=== PATIENT | male | born 1965 | race African-American/Black ===

== ENCOUNTER 2024-12-17 16:52 | Observation (INO) ==
[2024-12-17 17:01] VITALS: BMI 33.0
[2024-12-17 17:46] LABS: MEAN PLATELET VOLUME 7.2 fL (7.4-11.0); RED CELL DISTRIBUTION WIDTH 13.6 % (11.6-16.5)
[2024-12-17 17:57] LABS: COR NA(FOR HYPERGLY) 143 mmol/L (136-145); CREATININE 1.16 mg/dL (0.70-1.30); eGFR NON BLACK RACES > 60 (>60)
--- NOTE | 2024-12-17 18:33 | DR.EXTPAIN ---
HPI Time seen Time Seen by Provider: 12/17/24 18:33 Complaint/Symptoms Chief Complaint:: Patient states november 27 he stumped his right big toe and it started turning black he seen dr gonzalez and was told to come to be admitted to have it amputated. COVID-19 Coronavirus risk:travel/contact w/high risk person: No Has patient experienced Coronavirus symptoms: No Source History Provided: Patient Mode of arrival Mode of Arrival: Ambulatory Timing Onset of Chief Complaint: 11/27/24 PMH PMH Past Medical History: Yes Past Medical History: Diabetes Past Surgical History: Yes Surgical History: Ortho Surgery Past Surgical History Comment: partial amputation L bird finger Family History History of Family Medical Conditions: Yes Family Medical History: Diabetes Mellitus Social History Does patient currently use any type of tobacco product: No Have you used tobacco products in the last 12 months: No Type of Tobacco Use: None Does any household member use tobacco: No Alcohol Use: None Do you use any recreational Drugs:: No Lives With: Alone Lives Where: Home Travel Risk Coronavirus risk:travel/contact w/high risk person: No Has patient experienced Coronavirus symptoms: No Infectious screening In the last 2 months have you had wt loss of >10#?: NO Have you had fever, night sweats or hemotysis?: No Have you traveled outside the country in the last 6 months?: No Isolation: Standard PE Vital Signs Vitals: Vital Signs Temperature 98.4 F Pulse Rate 95 Respiratory Rate 16 Blood Pressure 120/71 O2 Sat by Pulse Oximetry 95 ROR Labs Reviewed 12/20/24 05:21 12/20/24 05:21 Laboratory: WBC 7.7 X10^3/uL (3.6-10.0) 12/17/24 17:39 RBC 5.16 X10^6/uL (4.7-6.0) 12/17/24 17:39 Hgb 14.9 g/dL (13.5-18.0) 12/17/24 17:39 Hct 43.8 % (42.0-54.0) 12/17/24 17:39 MCV 85.0 fL (80.0-100.0) 12/17/24 17:39 MCH 28.8 pg (27.0-34.0) 12/17/24 17:39 MCHC 33.9 g/dL (33.0-35.0) 12/17/24 17:39 RDW 13.6 % (11.6-16.5) 12/17/24 17:39 Plt Count 330 X10^3/uL (150.0-450.0) 12/17/24 17:39 MPV 7.2 fL (7.4-11.0) L 12/17/24 17:39 Neut % (Auto) 58.1 % (42.0-75.0) 12/17/24 17:39 Lymph % (Auto) 28.4 % (21.0-51.0) 12/17/24 17:39 [place] % (Auto) 8.2 % (0.0-13.0) 12/17/24 17:39 Eos % (Auto) 4.5 % (0.9-2.9) H 12/17/24 17:39 Baso % (Auto) 0.8 % (0.2-1.0) 12/17/24 17:39 Neut # (Auto) 4.5 x10^3/uL (2.2-4.8) 12/17/24 17:39 Lymph # (Auto) 2.2 X10^3/uL (1.3-2.9) 12/17/24 17:39 [place] # (Auto) 0.6 x10^3/uL (0.3-0.8) 12/17/24 17:39 Eos # (Auto) 0.3 x10^3/uL (0.0-0.2) H 12/17/24 17:39 Baso # (Auto) 0.1 X10^3/uL (0.0-0.1) 12/17/24 17:39 Absolute Nucleated RBC 0.0 /100WBC 12/17/24 17:39 ESR 17 MM/HOUR (0-15) H 12/17/24 17:39 Sodium 140 mmol/L (136-145) 12/17/24 17:39 Corrected Sodium 143 mmol/L (136-145) 12/17/24 17:39 Potassium 3.7 mmol/L (3.5-5.1) 12/17/24 17:39 Chloride 104 mmol/L (98-107) 12/17/24 17:39 Carbon Dioxide 27.7 mmol/L (21-32) 12/17/24 17:39 BUN 9 mg/dL (7-18) 12/17/24 17:39 Creatinine 1.16 mg/dL (0.70-1.30) 12/17/24 17:39 Est GFR (MDRD) Af Amer > 60 (>60) 12/17/24 17:39 Est GFR (MDRD) Non-Af > 60 (>60) 12/17/24 17:39 Glucose 209 mg/dL (65-99) H 12/17/24 17:39 Calcium 9.0 mg/dL (8.5-10.1) 12/17/24 17:39 Corrected Calcium TNP 12/17/24 17:39 Total Bilirubin 0.20 mg/dL (0.2-1.0) 12/17/24 17:39 AST 10 Units/L (15-37) L 12/17/24 17:39 ALT 27 Units/L (12-78) 12/17/24 17:39 Alkaline Phosphatase 86 Units/L (46-116) 12/17/24 17:39 C-Reactive Protein 7.70 mg/L (0-3.0) H 12/17/24 17:39 Total Protein 9.1 g/dL (6.4-8.2) H 12/17/24 17:39 Albumin 4.3 g/dL (3.4-5.0) 12/17/24 17:39 Globulin 4.8 g/dL (2.5-4.5) H 12/17/24 17:39 Albumin/Globulin Ratio 0.9 Ratio (1.1-2.1) L 12/17/24 17:39 Opioid Opioid Risk Tool Age (Sanjeev box if 16-45): No History of Preadolescent Sexual Abuse: No Total: 0 Total Score Risk Category: Low Risk Copyright: Anders RAZA predicting aberrant behaviors Discharge Plan Diagnosis Discharge Problem: Gangrene of right foot, Foot pain Discharge Plan Patient Disposition: 09 ADMITTED INPATIENT Condition: Stable Orders to Discharge Patient Discharge Orders: Discharge (Routine); Ordered 12/20/24 Ordered By: SHYANN VALLE
[2024-12-17] MEDS ORDERED: XYLOCAINE 2 % (PLAIN) ONE (23:00)
[2024-12-17] MEDS ORDERED: KETAMINE HCL ONE ×2 (23:00)
[2024-12-17] MEDS ORDERED: PRECEDEX INJ VIAL ONE (23:00)
[2024-12-17] MEDS ORDERED: ZOFRAN INJ 4 MG VIAL IVP PRN (23:09)
[2024-12-17] MEDS: VANCOMYCIN IV *PREMIX 1 G/200 ML BAG 1 G/200 ML PIGGYBACK IV ONE (23:10)
[2024-12-17] MEDS: VANCOMYCIN IV *PREMIX 1 G/200 ML BAG 1 G/200 ML PIGGYBACK IV SCH (23:16)
--- NOTE | 2024-12-18 00:14 | CT ---
EXAM: CT ANGIOGRAM ABDOMEN, PELVIS, AND BILATERAL LOWER EXTREMITIES WITH AND WITHOUT CONTRAST HISTORY: Patient states november 27 he stumped his right big toe and it started turning black he seen dr gonzalez and was told to come to be admitted to have it amputated.; . COMPARISON: None. TECHNIQUE: Axial CT images were obtained through the abdomen and pelvis and bilateral lower extremities both before after the intravenous administration of contrast. Coronal and sagittal reformatted images were included. MIP images were also performed. Informed written consent was obtained from the patient prior to contrast administration. All CT scans at this facility use dose modulation, iterative reconstruction, and/or weight based dosing when appropriate to reduce radiation dose to as low as reasonably achievable. FINDINGS: VASCULAR FINDINGS: ABDOMEN/PELVIS: Aorta is normal in course and caliber without evidence of aneurysm, dissection, or other acute pathology. Moderate atherosclerotic disease is present. Celiac, superior mesenteric, and renal arteries are all widely patent. Bilateral iliac arteries are patent and normal in caliber. LEFT LOWER EXTREMITY: Femoral artery, superficial femoral artery, and popliteal artery are all widely patent with no flow limiting stenosis. Severe disease of the infrapopliteal vessels with faintly visible one-vessel runoff through the right ankle via the posterior tibial artery.. RIGHT LOWER EXTREMITY: Femoral artery, superficial femoral artery, and popliteal artery are all widely patent with no flow limiting stenosis. Severe disease of the infrapopliteal vessels with faintly visible one-vessel runoff through the right ankle via the anterior tibial artery.. NON VASCULAR FINDINGS: LOWER THORAX: Normal ABDOMEN: LIVER: Normal GALLBLADDER: Normal SPLEEN: Normal PANCREAS: Normal KIDNEYS: Normal ADRENAL GLANDS: Normal GI TRACT: Normal course and caliber LYMPH NODES: No enlarged nodes PERITONEUM / RETROPERITONEUM: No free gas PELVIS: BLADDER: Normal GENITALS: Normal BONES: Normal LOWER EXTREMITIES: SOFT TISSUE: Normal. BONES: Normal IMPRESSION: 1. CTA of the abdominal aorta demonstrates moderate calcified atherosclerotic disease without aneurysm or dissection. No significant stenosis or occlusion of the mesenteric or renal arteries. 2. CTA of the pelvis demonstrates normal appearance of the pelvic arterial vasculature 3. CTA of the bilateral lower extremities demonstrates good flow through both SFA and popliteal arteries. There is severe disease of both infrapopliteal vessels with scattered calcified plaques with bilateral one-vessel runoff to both ankles via the posterior tibial artery on the right and anterior tibial artery on the left. THIS IS AN ELECTRONICALLY VERIFIED FINAL REPORT 12/18/2024 12:11 AM - Electronically signed by Everett Meeks MD
[2024-12-18] MEDS: NS 1,000 ML IV 1,000 ML IV SCH (00:34)
[2024-12-18] MEDS: VANCOMYCIN IV *PREMIX 1 G/200 ML BAG 1 G/200 ML PIGGYBACK IV ONE (03:03)
[2024-12-18] MEDS: OMNIPAQUE 350 mg/mL 50 mL BTL 50 ML ONE (03:03)
[2024-12-18] MEDS: OMNIPAQUE 350 mg/mL 100 mL BTL 100 ML ONE (03:03)
[2024-12-18] MEDS: NS 500 ML IV 500 ML IV ONE ×2 (03:03→14:39)
[2024-12-18] MEDS: NovoLIN R (or HumuLIN R) SUBCUT PRN (05:47)
[2024-12-18 05:51] LABS: MEAN PLATELET VOLUME 7.6 fL (7.4-11.0); RED CELL DISTRIBUTION WIDTH 13.5 % (11.6-16.5)
[2024-12-18 06:03] LABS: COR NA(FOR HYPERGLY) 145 mmol/L (136-145); CREATININE 1.04 mg/dL (0.70-1.30); eGFR NON BLACK RACES > 60 (>60)
[2024-12-18] MEDS: MAG-OX TAB PO SCH (07:50)
[2024-12-18] MEDS: VANCOMYCIN IV *PREMIX 1 G/200 ML BAG 1 G/200 ML PIGGYBACK IV SCH (07:50)
[2024-12-18] MEDS ORDERED: CONSULT PHARMACY - POTASSIUM & MAGNESIUM XX SCH (08:00)
--- NOTE | 2024-12-18 09:10 | EKG ---
Test Reason : preop Blood Pressure : */* mmHG Vent. Rate : 80 BPM Atrial Rate : 80 BPM P-R Int : 216 ms QRS Dur : 82 ms QT Int : 350 ms P-R-T Axes : 67 12 47 degrees QTc Int : 403 ms Sinus rhythm with 1st degree AV block Otherwise normal ECG No previous ECGs available Confirmed by Donovan Ochoa MD ([id number]) on 12/18/2024 2:35:31 PM Referred By: Confirmed By: Donovan Ochoa MD
[2024-12-18] MEDS: REGLAN INJ 10 MG VIAL IVP PRN (10:11)
[2024-12-18] MEDS: PEPCID 20 MG VIAL IVP PRN (10:11)
--- NOTE | 2024-12-18 10:24 | DR.CONSULT ---
CONSULT Consultation for Day of: Date: 12/18/24 Chief Complaint Chief Complaint: 59-year-old male with significant history of diabetes who has gangrenous changes of the right great toe. Presumably after some trauma. He was admitted and placed on antibiotics. CT angiogram shows significant disease of the intra popliteal arteries bilaterally with one-vessel runoff bilaterally being the posterior tibial on the left and anterior tibial on the right. Patient will require revascularization prior to amputation planned of the right great toe by Dr. Velásquez of podiatry. Patient is not a smoker and denies any significant history of coronary vascular disease or chest pain. Allergies Allergies Allergy/AdvReac Type Severity Reaction Status Date / Time No Known Allergies Allergy Verified 12/17/24 17:01 History of Present Illness History of Present Illness: see above Past Medical History Past Medical History: Diabetes Past Surgical History Surgical History: Other Family History Family Medical History: Diabetes Mellitus Social History Does patient currently use any type of tobacco product: No Have you used tobacco products in the last 12 months: No Type of Tobacco Use: None Does any household member use tobacco: No Alcohol Use: None Drug Use: Marijuana Medications Home Medications: No Known Allergies Allergy (Verified 12/17/24 17:01) CONTINUE taking the following medications metformin 500 mg tablet 500 mg PO DAILY 12/17/24 [History] Review of Systems Constitutional: See HPI Eyes: No Symptoms Reported ENT: No Symptoms Reported Respiratory: No Symptoms Reported Cardiovascular: No Symptoms Reported and Other (Palpable femoral pulses bilaterally. Absent pulses both ankles. Gangrenous changes of the distal aspect of the right great toe. No obvious significant cellulitis) Gastrointestinal: No Symptoms Reported Genitourinary: No Symptoms Reported Musculoskeletal: No Symptoms Reported Skin: No Symptoms Reported Neurological: No Symptoms Reported Physical Exam Vital Signs: Vital Signs Temperature 98.4 F Temperature 97.9 F Pulse Rate [Left Radial] 72 Pulse Rate [Left Radial] 78 Respiratory Rate 20 Respiratory Rate 20 Blood Pressure [Right Arm] 167/84 Blood Pressure [Right Arm] 147/84 O2 Sat by Pulse Oximetry 100 O2 Sat by Pulse Oximetry 100 Oriented: Normal, Time, Person and Place Eyes: Normal Ear: Normal Nose: Normal Throat: Normal Respiratory: Clear Throughout Cardiovascular: Normal : Normal Auscultation: Bowel Sounds: Normal Palpation: Normal Tenderness: Normal Skin: Other (Gangrenous changes right great toe with no obvious cellulitis) Musculoskeletal: Normal (With the exception of involvement of the right great toe, see above) Psychiatric: Normal Mood Description: Calm Affect: Normal Speech Pattern: Clear and Appropriate Plan (1) 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 Risk and benefits discussed with the patient he agrees to proceed. (2) Type 2 diabetes mellitus without complications: Status: Acute (3) Gangrene of right foot: Status: Acute
--- NOTE | 2024-12-18 11:07 | DR.CONSULT ---
CONSULT Consultation for Day of: Date: 12/18/24 Chief Complaint Chief Complaint: Open wound to great right toe, concern for osteomyelitis, worsening symptoms was sent in by sewing machine adjuster Dr. Velásquez for surgical intervention Allergies Allergies Allergy/AdvReac Type Severity Reaction Status Date / Time No Known Allergies Allergy Verified 12/17/24 17:01 History of Present Illness History of Present Illness: Patient is a 59 year old male with PMHx of diabetes. Patient admits to injuring his right big toe by stumping it. He noticed discoloration and a wound begin to the toe that became concerning. Patient had seen Dr. Velásquez in office and there was concern for osteomyelitis to the distal aspect of the hallux. Patient was told to go to the hospital for admission, vascular consult and for podiatric surgical intervention. Patient denies tobacco use but does admit to marijuana use. Past Medical History Past Medical History: Diabetes Past Surgical History Surgical History: Other Family History Family Medical History: Diabetes Mellitus Social History Does patient currently use any type of tobacco product: No Have you used tobacco products in the last 12 months: No Type of Tobacco Use: None Does any household member use tobacco: No Alcohol Use: None Drug Use: Marijuana Medications Home Medications: No Known Allergies Allergy (Verified 12/17/24 17:01) CONTINUE taking the following medications metformin 500 mg tablet 500 mg PO DAILY 12/17/24 [History] Physical Exam Vital Signs: Vital Signs Temperature 98.4 F Temperature 97.9 F Pulse Rate [Left Radial] 72 Pulse Rate [Left Radial] 78 Respiratory Rate 20 Respiratory Rate 20 Blood Pressure [Right Arm] 167/84 Blood Pressure [Right Arm] 147/84 O2 Sat by Pulse Oximetry 100 O2 Sat by Pulse Oximetry 100 Plan (1) Atherosclerosis of [place] arteries of extremities with rest pain, right leg: Status: Acute (2) Type 2 diabetes mellitus without complications: Status: Acute (3) Gangrene of right foot: Status: Acute Narrative Support Text: Pt to undergo care and intervention by Dr. Cook due to one vessel runoff seen on CTA- please keep NPO for tuesday procedure Pt will be boarded for surgical intervention for Tuesday with podiatry where he will undergo right partial hallux amputation, deep tendon transfer and double advancement flap to the right foot. Please keep patient NPO at midnight for tomorrows procedure
[2024-12-18] MEDS: NS IV PRN (13:45)
[2024-12-18] MEDS: NS 1,000 ML IV 1,000 ML ONE (13:47)
[2024-12-18] MEDS: ANCEF VIAL 1 GRAM ONE (13:50)
[2024-12-18] MEDS: ZOFRAN INJ 4 MG VIAL IVP PRN (13:50)
[2024-12-18] MEDS: NS 100 ML IV 100 ML ONE (13:50)
[2024-12-18] MEDS: ANCEF VIAL 1 GRAM IV PRN (13:55)
[2024-12-18] MEDS: PEPCID 20 MG VIAL ONE (14:00)
[2024-12-18] MEDS ORDERED: DANTRIUM PRN (14:00)
[2024-12-18] MEDS: DIPRIVAN VIAL 20 ML ONE ×2 (14:00→16:34)
[2024-12-18] MEDS: FENTANYL VIAL INJ 100 mcg ONE (14:00)
[2024-12-18] MEDS: REGLAN INJ 10 MG VIAL ONE (14:00)
[2024-12-18] MEDS: ZOFRAN INJ 4 MG VIAL ONE (14:00)
[2024-12-18] MEDS: VERSED ONE (14:00)
[2024-12-18] MEDS: VERSED IVP PRN (14:03)
[2024-12-18] MEDS ORDERED: XYLOCAINE 2 % (PLAIN) PRN (14:05)
[2024-12-18] MEDS: PRECEDEX INJ VIAL IVP PRN (14:07)
[2024-12-18] MEDS: KETAMINE HCL IV PRN (14:07)
[2024-12-18] MEDS: DIPRIVAN IVP PRN (14:07)
[2024-12-18] MEDS: MARCAINE 0.5% ONE (14:20)
[2024-12-18] MEDS: HEPARIN 1,000 UNIT/500 ML-NS 3,000 UNIT/1,500 ML IV.SOLN ONE (14:20)
[2024-12-18] MEDS: VISIPAQUE 100 ML ONE (14:20)
[2024-12-18] MEDS: VISIPAQUE 50 ML ONE (14:20)
[2024-12-18] MEDS: HEPARIN SODIUM INJ 5000 UNITS ONE (14:22)
[2024-12-18] MEDS ORDERED: HEPARIN SODIUM INJ 5000 UNITS IVP PRN (14:22)
[2024-12-18] MEDS: FENTANYL VIAL INJ 100 mcg IVP PRN (14:38)
[2024-12-18] MEDS: DILAUDID INJ IVP PRN (15:12)
--- NOTE | 2024-12-18 15:30 | OR.IMMED ---
IMMEDIATE POST-OP NOTE Immediate Post-Op Note Date of surgery/procedure: 12/18/24 Pre-Op Diagnosis: Critical ischemia right leg with gangrenous changes right great toe distally Post-Op Diagnosis: Same, see findings Procedure: Aortogram, arteriogram right leg, atherectomy and angioplasty right anterior tibial artery, angioplasty posterior tibial and peroneal arteries of the right leg Description of Procedure: Dictated Surgeon/Linux Support Engineer: Kyrie Cook MD, FACS Findings: Aorta and superficial and popliteal arteries are normalon right . High takeoff of the right anterior tibial artery above the knee with occlusion in the midportion. Occlusion of the proximal portion of the posterior tibial and severe disease of the entire right peroneal artery Estimated Blood Loss: < 50 cc Complications: none Progress Notes: Patient will be returned to the floor. Patient will receive 1 dose of Lovenox tonight and then held for amputation of right great toe tomorrow. After surgery tomorrow we will make sure the patient is on Xarelto 2 provide milligrams twice daily and aspirin 81 mg daily
[2024-12-18] MEDS: DILAUDID INJ ONE (16:33)
[2024-12-18] MEDS: PROTAMINE SULFATE 50 MG VIAL ONE (16:33)
[2024-12-18] MEDS: LOVENOX INJ 80 MG SYR SC ONE (17:14)
[2024-12-18] MEDS: MORPHINE SULFATE INJ 4 MG IVP PRN (19:39)
[2024-12-18] MEDS ORDERED: SNACK - Diabetic Appropriate PO SCH (20:00)
[2024-12-18] MEDS ORDERED: GLUCOPHAGE XR 24-HR PO SCH (21:00)
[2024-12-18 21:01] LABS: CREATININE 1.04 mg/dL (0.70-1.30)
[2024-12-18] MEDS: PHARMACY COMMENT IV NR (21:43)
[2024-12-18] MEDS ORDERED: ZESTRIL TAB 20 MG ONE (21:46)
[2024-12-18] MEDS: NORVASC TAB 5 MG PO SCH (21:56)
[2024-12-18] MEDS: ZESTRIL TAB 20 MG PO SCH (21:56)
[2024-12-18] MEDS: ACTOS PO SCH (21:57)
[2024-12-19 05:22] LABS: MEAN PLATELET VOLUME 7.6 fL (7.4-11.0); RED CELL DISTRIBUTION WIDTH 13.7 % (11.6-16.5)
[2024-12-19] MEDS: HIBICLENS WASH EXT ONE (05:29)
[2024-12-19 05:45] LABS: COR CA(FOR HYPOALB) 8.5 mg/dL (8.5-10.1); COR NA(FOR HYPERGLY) 140 mmol/L (136-145); CREATININE 0.87 mg/dL (0.70-1.30); eGFR NON BLACK RACES > 60 (>60)
[2024-12-19] MEDS: ZESTRIL TAB 20 MG ONE (09:08)
[2024-12-19] MEDS: MAGNESIUM SULFATE 1 GRAM/100 mL PREMIX 1 G/100 ML BAG IV SCH (09:45)
[2024-12-19] MEDS: BETADINE SOLN ONE (10:29)
[2024-12-19] MEDS: MARCAINE 0.25% INJ ONE (10:29)
[2024-12-19] MEDS: DIPRIVAN VIAL 20 ML ONE (10:53)
[2024-12-19] MEDS: VERSED ONE (10:54)
[2024-12-19] MEDS: NS 1,000 ML IV 1,000 ML ONE (10:57)
[2024-12-19] MEDS: ANCEF VIAL 1 GRAM IV PRN (11:36)
[2024-12-19] MEDS: ANCEF VIAL 1 GRAM ONE (11:36)
[2024-12-19] MEDS: NS 1,000 ML IV 200 ML IV PRN (11:36)
[2024-12-19] MEDS: XYLOCAINE 1% and EPINEPHRINE 1:100,000 ONE (11:36)
[2024-12-19] MEDS: NS 100 ML IV 100 ML ONE (11:36)
[2024-12-19] MEDS: VERSED IVP PRN (11:39)
[2024-12-19] MEDS: FENTANYL VIAL INJ 100 mcg IVP PRN (11:40)
[2024-12-19] MEDS: FENTANYL VIAL INJ 100 mcg ONE (11:40)
[2024-12-19] MEDS: DIPRIVAN VIAL 200 ML IVP PRN (11:47)
[2024-12-19] MEDS: KETAMINE HCL IV PRN (11:56)
--- NOTE | 2024-12-19 13:48 | NOTE.SOAP ---
Soap Note Note for Day of Date of Exam: 12/19/24 Subjective Data Subjective Data: Postoperative day 1 after arterial intervention with intervention of all 3 runoff vessels of the right leg. Patient for amputation of the right great toe today. Objective Data Temperature: 97.7 F Pulse Rate: 75 Respiratory Rate: 17 Blood Pressure: 163/88 O2 Sat by Pulse Oximetry: 95 Objective Data: Right foot warm. Excellent biphasic Doppler signal anterior tibial and posterior tibial arteries right foot. Assessment Assessment: Status post revascularization right leg Plan Plan: For amputation right great toe later today by Dr. Velásquez.
--- NOTE | 2024-12-19 15:53 | DR.OPNOTE ---
OP NOTE Pre-Op Diagnosis: Critical ischemia right leg with gangrenous changes right great toe Post-Op Diagnosis: same, see findings Procedure Date Date Of Procedure: 12/18/24 Procedure: PROCEDURE: Diagnostic aortogram, diagnostic arteriogram right leg, atherectomy and balloon angioplasty right anterior tibial artery, angioplasty right posterior tibial artery, angioplasty right peroneal artery NARRATIVE: The patient was taken to the operative suite and placed in the supine position. The left groin and entire right leg were prepped and draped in sterile fashion. Patient was given intravenous sedation supervised by myself. Timeout for the procedure obtained. Ultrasound used to identify the femoral artery in the left groin and the skin overlying it infiltrated with 0.5% Marcaine. Ultrasound used to guide puncture of the left femoral artery and a 0.012 inch guidewire placed. Incision made over the guidewire at the skin edge with a #11 knife blade and the micro sheath placed over the guidewire into the femoral artery. Small wire exchanged for a 0.035 inch Advantage Glidewire and the micro sheath exchanged for a 5 [place]ian vascular sheath. Patient given 5000 units of intravenous heparin. Omni catheter placed over the guidewire into the aorta and power injector used to perform aortogram showing normal aorta and iliac arteries bilaterally. The Omni catheter was then used to direct the guidewire down the right common iliac artery to the distal right external iliac artery. The Omni catheter exchanged for a [place] catheter and sequential arteriograms performed of the right leg showing normal superficial femoral artery and popliteal artery with evidence of occlusion of all 3 vessels distally. Anterior tibial artery occluded proximally but did reconstitute distally. Posterior tibial artery was not seen initially but on subsequent films did show occlusion proximally with reconstitution distally and the peroneal artery was severely diseased throughout its entire length.. The [place] catheter removed and over the guidewire the 5 Tunisian sheath was exchanged for a 7 [place]ian Catpult Sheath which was parked in the distal right superficial femoral artery. [place] catheter and the 0.035 guidewire used to traverse the arteries of the right leg ultimately ending in the right anterior tibial artery and taken across occlusion all the way to the ankle. This was selective catheterization. [place] catheter used to exchange the 0.035 inch wire for a 0.014 inch Thruway wire. Over the Thruway wire we placed the JetCouchsurfing atherectomy device and performed atherectomy of the proximal right anterior tibial artery which was the main runoff to the foot. This was removed and then we balloon dilated the entire anterior tibial artery with a coyote 2.5 mm x 220 mm balloon. The wire was backed up and placed down the posterior tibial artery all the way to the ankle. This was also selective catheterization. Then we balloon dilated the right posterior tibial artery with the 2.5 mm x 220 mm balloon. Finally the wire was pulled back and placed down the peroneal artery all the way to the ankle. This also was selective catheterization. We performed balloon angioplasty over the wire of the peroneal artery with a coyote 2.5 mm x 220 mm balloon. Post procedure arteriogram showed excellent flow through all the 3 these vessels into the foot. Wires and devices removed from the Catapult sheath. This sheath pulled back into the aorta and a 0.035 guidewire placed. Catapult sheath exchanged over the wire for a Angio-Seal device used to close the puncture of the left femoral artery. Patient taken to the floor in good condition. Type of Anesthesia: Local (0.5% Marcaine) Anesthesia Comment: Plus MAC Findings: Completely occluded right posterior tibial artery proximally completely occluded anterior tibial artery proximally, severely diseased peroneal artery throughout its length. Type of Fluids Used:: Lactated Ringers Total Amount of Fluid Infused:: 750 cc EBL: <50 cc Complications:: none Needle/Sponge Count:: correct Disposition/Condition: Pt. tolerated procedure without difficulty. Taken to PACU in stable condition.
[2024-12-19] MEDS: CATAPRES TAB 0.1 MG PO ONE (16:16)
[2024-12-19] MEDS: PERCOCET TAB 5/325 MG PO PRN (20:47)
[2024-12-20 06:18] LABS: MEAN PLATELET VOLUME 7.5 fL (7.4-11.0); RED CELL DISTRIBUTION WIDTH 13.1 % (11.6-16.5)
[2024-12-20 06:22] LABS: COR CA(FOR HYPOALB) 9.0 mg/dL (8.5-10.1); COR NA(FOR HYPERGLY) 140 mmol/L (136-145); CREATININE 0.87 mg/dL (0.70-1.30); eGFR NON BLACK RACES > 60 (>60)
--- NOTE | 2024-12-20 08:10 | NOTE.SOAP ---
Soap Note Note for Day of Date of Exam: 12/20/24 Subjective Data Subjective Data: Patient resting comfortably, denies any significant pain. Patient states prior pain to groin site is now controlled. Assessment Assessment: Dressing clean, dry and intact Plan Plan: Can be discharged from a podiatric standpoint To follow up outpatient with Dr. Velásqeuz for post operative management Prescription for Spearman and Augmentin in patients chart for discharge Patient can WBAT in surgical to the right foot
[2024-12-20] MEDS ORDERED: ZESTRIL TAB 20 MG ONE (08:58)
[2024-12-20 09:03] VITALS: BP 148/73; PULSE 86; RESP 18; TEMP 97.5; O2SAT 97
== END 2024-12-20 12:00 | disposition home or self-care (01) ==
LOC: MED/SURG 16:52 → ER 16:52 → MED/SURG 23:30
PROVIDERS: ADMIT Obstetrics & Gynecology Obstetrics; ATTEND Obstetrics & Gynecology Obstetrics
DX: Z59.86 Financial insecurity; G89.18 Other acute postprocedural pain; R70.0 Elevated erythrocyte sedimentation rate; Z65.8 Other specified problems related to psychosocial circumstances; Z01.810 Encounter for preprocedural cardiovascular examination; Z89.022 Acquired absence of left finger(s); Z59.41 Food insecurity; L97.518 Non-pressure chronic ulcer of other part of right foot with other specified severity; R79.82 Elevated C-reactive protein (CRP); E83.42 Hypomagnesemia; E11.621 Type 2 diabetes mellitus with foot ulcer; E11.65 Type 2 diabetes mellitus with hyperglycemia; E83.51 Hypocalcemia; F12.90 Cannabis use, unspecified, uncomplicated; E11.52 Type 2 diabetes mellitus with diabetic peripheral angiopathy with gangrene; I96 Gangrene, not elsewhere classified; I70.221 Atherosclerosis of native arteries of extremities with rest pain, right leg

== ENCOUNTER 2025-01-01 18:10 | Inpatient (IN) ==
[2025-01-01 18:24] VITALS: BMI 33.0
[2025-01-01 18:44] LABS: MEAN PLATELET VOLUME 7.0 fL (7.4-11.0); RED CELL DISTRIBUTION WIDTH 13.3 % (11.6-16.5)
[2025-01-01 18:54] LABS: COR CA(FOR HYPOALB) 9.7 mg/dL (8.5-10.1); COR NA(FOR HYPERGLY) 143 mmol/L (136-145); CREATININE 0.99 mg/dL (0.70-1.30); eGFR NON BLACK RACES > 60 (>60)
--- NOTE | 2025-01-01 19:48 | CT ---
EXAM: CT RIGHT FOOT WITHOUT CONTRAST HISTORY: AMPUTATION OF THE RIGHT TOE COMPARISON: None. TECHNIQUE: Axial images were acquired of the RIGHT FOOT without IV contrast. Sagittal and coronal reformatted images were provided. All images were reviewed in a variety of windows and levels. RADIATION REDUCTION TECHNIQUE: Automated exposure control, Adjustment of the mA and/or kV according to patient size, or iterative reconstruction techniques were used. FINDINGS: Please note that lack of IV contrast limits evaluation of soft tissue structures and vascular detail. The patient is status post amputation at the level of the 1st metatarsophalangeal joint space with focal areas of soft tissue emphysema at the operative bed. Osteoarthritic changes are noted. IMPRESSION: 1. The patient is status post amputation at the level of the 1st metatarsophalangeal joint space with focal areas of soft tissue emphysema at the operative bed. This may be postoperative in etiology. However the differential diagnosis should include infection from an air producing organism. THIS IS AN ELECTRONICALLY VERIFIED FINAL REPORT 01/01/2025 7:45 PM - Electronically signed by Agustin Hull MD
[2025-01-01] MEDS ORDERED: NS 250 ML IV 25 ML IV PRN (20:07)
[2025-01-01] MEDS: ZOSYN VIAL 3.375 GRAMS 3.375 G in NS 100 ML IV 100 ML IV SCH (20:14)
[2025-01-01] MEDS: KLOR-CON ONE (20:14)
[2025-01-01] MEDS: KLOR-CON PO ONE (20:16)
--- NOTE | 2025-01-01 20:49 | DR.EXTPAIN ---
HPI Time seen Time Seen by Provider: 01/01/25 18:23 PCP Primary Care Physician: davin HPI Comment HPI Comment: Patient recently had right great toe amputation and vascular surgery. 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 Patient is diabetic but states his sugar has been controlled. Dr. Masterson sent him to ER for admission so that he could do surgery tomorrow. Patient denies fever Complaint/Symptoms Chief Complaint:: Patient states he just had his right big toe amputated this month went to his follow up appointment with dr velásquez they took his bandage off and notice swelling to the top of the foot, patient states they done a xray and seen fluid/air in the top of right foot and told him to come here to be admitted to have surgery. Patient denies any pain. COVID-19 Coronavirus risk:travel/contact w/high risk person: No Has patient experienced Coronavirus symptoms: No Source History Provided: Patient Mode of arrival Mode of Arrival: Wheelchair Timing Onset of Chief Complaint: 01/01/25 PMH PMH Past Medical History: Yes Past Medical History: Diabetes Past Medical History Comment: neuropathy Past Surgical History: Yes Surgical History: Ortho Surgery Past Surgical History Comment: right big toe amputated, partial amputation L bird finger Family History History of Family Medical Conditions: Yes Family Medical History: Diabetes Mellitus Social History Does patient currently use any type of tobacco product: No Have you used tobacco products in the last 12 months: No Type of Tobacco Use: None Does any household member use tobacco: No Alcohol Use: None Do you use any recreational Drugs:: No Lives With: Family Lives Where: Home Travel Risk Coronavirus risk:travel/contact w/high risk person: No Has patient experienced Coronavirus symptoms: No Infectious screening In the last 2 months have you had wt loss of >10#?: NO Have you had fever, night sweats or hemotysis?: No Have you traveled outside the country in the last 6 months?: No Isolation: Standard ROS Review of Systems Constitutional: No Symptoms Reported; negative Fever Eyes: No Symptoms Reported ENTM: No Symptoms Reported Respiratoy: No Symptoms Reported Cardiovascular: No Symptoms Reported Gastrointestinal/Abdominal: No Symptoms Reported Genitourinary: No Symptoms Reported Neurological: No Symptoms Reported Musculoskeletal: See HPI Integumentary: See HPI Hematologic/Lymphatic: No Symptoms Reported Endocrine: No Symptoms Reported Psychiatric: No Symptoms Reported All Other Systems: Reviewed and Negative PE Vital Signs Vitals: Vital Signs Temperature 98.0 F Pulse Rate [Left Radial] 99 Pulse Rate 106 Respiratory Rate 18 Respiratory Rate 18 Blood Pressure [Right Arm] 138/80 Blood Pressure 145/76 O2 Sat by Pulse Oximetry 99 O2 Sat by Pulse Oximetry 99 General Limitations: No Limitations General Appearance: Alert and In No Apparent Distress Head Head Exam: Normal Inspection Eyes Eye exam: Normal Appearance ENT ENT Exam: Normal Exam Neck Neck Exam: Normal Inspection Chest Chest Inspection: Normal Inspection Respiratory Respiratory Exam: Normal Lung Sounds Bilat Cardiovascular Cardiovascular Exam: Regular Rate and Normal Rhythm Abdominal Exam Abdominal Exam: Normal Inspection, Normal Bowel Sounds and Soft Extremities Extremities Exam: Other (Spoke to right great toe amputation. Sutures in place. Foul odor. Warm to the touch.) Back Back Exam: Normal Inspection Neurological Neurological Exam: Alert, Oriented X3 and CN II-XII Intact Psychiatric Psychiatric Exam: Normal Affect and Normal Mood Skin Skin Exam: Warm, Dry, Intact and Normal Color COURSE Treatment Treatment: Discussed results of workup with patient. Infected surgical site of right great toe. Discussed case with Dr. Masterson who saw him today in the office prior to sending him for admission and Dr. Masterson stated he plan to do surgery tomorrow morning. We discussed possibility of gas producing bacteria and given patient's vital signs and blood work results, he stated he would do the surgery in the morning unless something changes during the night. Consultation Called: 20:48 Consultation Comments: Discussed case with Dr. Rojas and he is agreeable to admission. ROR Labs Reviewed Laboratory Results Reviewed?: Yes 01/01/25 18:26 01/01/25 18:26 Laboratory: 01/01/25 18:28 Foot - Right Wound Gram Stain - Final WBC 12.3 X10^3/uL (3.6-10.0) H 01/01/25 18: RBC 4.65 X10^6/uL (4.7-6.0) L 01/01/25 18: Hgb 13.1 g/dL (13.5-18.0) L 01/01/25 18: Hct 39.2 % (42.0-54.0) L 01/01/25 18: MCV 84.1 fL (80.0-100.0) 01/01/25 18: MCH 28.2 pg (27.0-34.0) 01/01/25 18: MCHC 33.5 g/dL (33.0-35.0) 01/01/25 18: RDW 13.3 % (11.6-16.5) 01/01/25 18: Plt Count 499 X10^3/uL (150.0-450.0) H 01/01/25 18: MPV 7.0 fL (7.4-11.0) L 01/01/25 18: Neut % (Auto) 73.2 % (42.0-75.0) 01/01/25 18: Lymph % (Auto) 17.2 % (21.0-51.0) L 01/01/25 18: [place] % (Auto) 7.4 % (0.0-13.0) 01/01/25 18: Eos % (Auto) 1.7 % (0.9-2.9) 01/01/25 18: Baso % (Auto) 0.5 % (0.2-1.0) 01/01/25 18: Neut # (Auto) 9.0 x10^3/uL (2.2-4.8) H 01/01/25 18: Lymph # (Auto) 2.1 X10^3/uL (1.3-2.9) 01/01/25 18: [place] # (Auto) 0.9 x10^3/uL (0.3-0.8) H 01/01/25 18: Eos # (Auto) 0.2 x10^3/uL (0.0-0.2) 01/01/25 18: Baso # (Auto) 0.1 X10^3/uL (0.0-0.1) 01/01/25 18: Absolute Nucleated RBC 0.2 /100WBC 01/01/25 18: Sodium 141 mmol/L (136-145) 01/01/25 18: Corrected Sodium 143 mmol/L (136-145) 01/01/25 18: Potassium 3.4 mmol/L (3.5-5.1) L 01/01/25 18: Chloride 102 mmol/L (98-107) 01/01/25 18:26 Carbon Dioxide 28.8 mmol/L (21-32) 01/01/25 18:26 BUN 17 mg/dL (7-18) 01/01/25 18:26 Creatinine 0.99 mg/dL (0.70-1.30) 01/01/25 18:26 Est GFR (MDRD) Af Amer > 60 (>60) 01/01/25 18:26 Est GFR (MDRD) Non-Af > 60 (>60) 01/01/25 18:26 Glucose 186 mg/dL (65-99) H 01/01/25 18:26 Lactic Acid 2.0 mmol/L (0.4-2.0) 01/01/25 18:33 Calcium 9.1 mg/dL (8.5-10.1) 01/01/25 18:26 Corrected Calcium 9.7 mg/dL (8.5-10.1) 01/01/25 18:26 Total Bilirubin 0.20 mg/dL (0.2-1.0) 01/01/25 18:26 AST 14 Units/L (15-37) L 01/01/25 18:26 ALT 38 Units/L (12-78) 01/01/25 18:26 Alkaline Phosphatase 89 Units/L (46-116) 01/01/25 18:26 Total Protein 8.5 g/dL (6.4-8.2) H 01/01/25 18:26 Albumin 3.3 g/dL (3.4-5.0) L 01/01/25 18:26 Globulin 5.2 g/dL (2.5-4.5) H 01/01/25 18:26 Albumin/Globulin Ratio 0.6 Ratio (1.1-2.1) L 01/01/25 18:26 Other Results Comments: Name: WILL VICTORIA : 1965 Sex: M Location: Order Number(s): [id number] Procedure(s):LOWER EXT W/O CON CT Ordering Physician: Mk Kraus Primary Care: Chavo Velásquez DPM Service Date: 01/01/25 Service Time: 1817 EXAM: CT RIGHT FOOT WITHOUT CONTRAST HISTORY: AMPUTATION OF THE RIGHT TOE COMPARISON: None. TECHNIQUE: Axial images were acquired of the RIGHT FOOT without IV contrast. Sagittal and coronal reformatted images were provided. All images were reviewed in a variety of windows and levels. RADIATION REDUCTION TECHNIQUE: Automated exposure control, Adjustment of the mA and/or kV according to patient size, or iterative reconstruction techniques were used. FINDINGS: Please note that lack of IV contrast limits evaluation of soft tissue structures and vascular detail. The patient is status post amputation at the level of the 1st metatarsophalangeal joint space with focal areas of soft tissue emphysema at the operative bed. Osteoarthritic changes are noted. IMPRESSION: 1. The patient is status post amputation at the level of the 1st metatarsophalangeal joint space with focal areas of soft tissue emphysema at the operative bed. This may be postoperative in etiology. However the differential diagnosis should include infection from an air producing organism. THIS IS AN ELECTRONICALLY VERIFIED FINAL REPORT 01/01/2025 7:45 PM - Electronically signed by Agustin Hull MD Opioid Opioid Risk Tool Age (Sanjeev box if 16-45): No History of Preadolescent Sexual Abuse: No Total: 0 Total Score Risk Category: Low Risk Copyright: Mcnamara predicting aberrant behaviors Discharge Plan Diagnosis Discharge Problem: Infection following a procedure, deep incisional surgical site, initial encounter Discharge Plan Patient Disposition: 09 ADMITTED INPATIENT Condition: Stable Prescriptions: No Action pioglitazone 15 mg Tablet 15 mg PO DAILY Qty: 30 3RF lisinopril 20 mg Tablet 20 mg PO DAILY Qty: 30 3RF amlodipine 5 mg Tablet 5 mg PO DAILY Qty: 30 3RF metformin 500 mg Tablet Extended Release 24 Hr 1,000 mg PO BID Qty: 120 3RF aspirin 81 mg Tablet,Delayed Release (Dr/Ec) 81 mg PO QDAY Qty: 30 0RF rivaroxaban 2.5 mg Tablet 2.5 mg PO BID 30 Days Qty: 60 0RF Health Concerns: Post Hospitalization: new medications and changes needed to prevent readmission or further decline. Pt educated and given instructions on all concerns. Plan of Treatment: Continue with present treatment and follow up plan. Pt is to keep follow up appointment as instructed and take medications as ordered. Orders to Discharge Patient Discharge Orders: Transfer (Routine); Ordered 01/01/25 Ordered By: Mk Kraus Follow ups/Referrals Follow ups/Referrals: Chavo Velásquez [Primary Care Provider, Unknown] - 3 days Instructions Stand Alone Forms: Find Help Web Site, Post Hospital Follow Up Care Print Language: LAO
[2025-01-01] MEDS ORDERED: KETAMINE HCL ONE (20:53)
[2025-01-01] MEDS ORDERED: XYLOCAINE 2 % (PLAIN) ONE ×2 (20:53)
[2025-01-01] MEDS ORDERED: PRECEDEX INJ VIAL ONE (20:53)
--- NOTE | 2025-01-01 21:03 | NOTE.SOAP ---
Soap Note Note for Day of Date of Exam: 01/01/25 Subjective Data Subjective Data: Patient was sent to the ED for surgical intervention of the right foot after being seen in the office by his podiatric surgeon, Dr. Velásquez. His foot was noted to be swollen and purulence was appreciated on compression at his surgical /site. Patient had undergone a hallux amputation back on 12/19/24. Imaging was taken in the office and gas bubbles were appreciated on the imaging. Plan Plan: Patient to be admitted to inpatient floors Patients' labs, imaging and vitals were discussed with Dr. Velásquez. Patient will be taken to the OR tomorrow 01/02/25 for an incision and drainage of the right foot with antibiotic bead placement. Patient is to be NPO at midnight Patient had underwent vascular intervention on previous admission and Dr. Cook obtained three vessel runoff to the right foot. Further instructions to follow surgical intervention
[2025-01-01] MEDS: VANCOMYCIN IV *PREMIX 1 G/200 ML BAG 1 G/200 ML PIGGYBACK IV ONE (21:18)
[2025-01-01] MEDS ORDERED: ZOSYN VIAL 3.375 GRAMS 3.375 G in NS 100 ML IV 100 ML IV SCH (21:30)
[2025-01-01] MEDS ORDERED: PHARMACY CONSULT - VANCOMYCIN XX SCH (21:30)
[2025-01-01] MEDS ORDERED: CONSULT PHARMACY - POTASSIUM & MAGNESIUM XX SCH (21:30)
[2025-01-01] MEDS ORDERED: K-DUR TAB 20 MEQ PO SCH (22:00)
[2025-01-01] MEDS: ULTRAM PO PRN (23:46)
[2025-01-02] MEDS ORDERED: HIBICLENS WASH ONE (04:29)
[2025-01-02 04:58] LABS: MEAN PLATELET VOLUME 7.1 fL (7.4-11.0); RED CELL DISTRIBUTION WIDTH 13.1 % (11.6-16.5)
[2025-01-02] MEDS: HIBICLENS WASH EXT ONE (05:00)
[2025-01-02 05:08] LABS: COR CA(FOR HYPOALB) 9.7 mg/dL (8.5-10.1); COR NA(FOR HYPERGLY) 144 mmol/L (136-145); CREATININE 1.05 mg/dL (0.70-1.30); eGFR NON BLACK RACES > 60 (>60)
[2025-01-02] MEDS ORDERED: CONSULT PHARMACY - POTASSIUM & MAGNESIUM XX SCH (06:00)
--- NOTE | 2025-01-02 06:20 | RAD ---
EXAMINATION: CHEST, 1 VIEW HISTORY: PRE OP-SURGICAL SITE INFECTION OF RIGHT GREAT TOE ; SX: DM, NEUROPATHY SX: ORTHO, RIGHT BIG TOE AMP . COMPARISON STUDY: None. TECHNIQUE: Single portable AP view of the chest FINDINGS: Lungs are expanded. [id number] cardiac silhouette enlargement. Normal pulmonary vascular pattern. Bones are intact. IMPRESSION: Cardiac silhouette enlargement. THIS IS AN ELECTRONICALLY VERIFIED FINAL REPORT 01/02/2025 6:17 AM - Electronically signed by Sarah Ashraf MD
[2025-01-02] MEDS: VANCOMYCIN IV *PREMIX 1.75 G/350 ML BAG 1.75 G/350 ML PIGGYBACK IV SCH ×2 (07:13→21:00)
[2025-01-02] MEDS: NS 250 ML IV 250 ML IV ONE (09:52)
[2025-01-02] MEDS: NS 250 ML IV 25 ML IV PRN (09:52)
[2025-01-02] MEDS: K-DUR TAB 20 MEQ PO SCH (10:00)
[2025-01-02] MEDS: NORVASC TAB 5 MG PO SCH (10:01)
[2025-01-02] MEDS: ZESTRIL TAB 20 MG PO SCH (10:01)
[2025-01-02] MEDS: ACTOS PO SCH (10:01)
[2025-01-02] MEDS: DIPRIVAN VIAL 20 ML ONE ×2 (12:05→12:58)
[2025-01-02] MEDS: PRECEDEX INJ VIAL ONE (12:05)
[2025-01-02] MEDS: KETAMINE HCL ONE (12:06)
[2025-01-02] MEDS: XYLOCAINE 1% and EPINEPHRINE 1:100,000 ONE (12:06)
[2025-01-02] MEDS: FENTANYL VIAL INJ 100 mcg ONE (12:13)
[2025-01-02] MEDS: VERSED ONE (12:13)
[2025-01-02] MEDS: ZOFRAN INJ 4 MG VIAL ONE (12:19)
[2025-01-02] MEDS: REGLAN INJ 10 MG VIAL ONE (12:19)
[2025-01-02] MEDS: NS 100 ML IV 100 ML ONE (12:20)
[2025-01-02] MEDS: LR 1,000 ML IV 0 ML IV ONE (12:24)
[2025-01-02] MEDS: PEPCID 20 MG VIAL ONE (12:25)
[2025-01-02] MEDS: NS 1,000 ML IV 1,000 ML ONE (12:27)
[2025-01-02] MEDS: NS 1,000 ML IV 500 ML IV PRN (12:30)
[2025-01-02] MEDS: PEPCID 20 MG VIAL IVP PRN (12:32)
[2025-01-02] MEDS: REGLAN INJ 10 MG VIAL IVP PRN (12:32)
[2025-01-02] MEDS: VERSED IVP PRN (12:32)
[2025-01-02] MEDS: ZOFRAN INJ 4 MG VIAL IVP PRN (12:33)
[2025-01-02] MEDS: ANCEF VIAL 1 GRAM ONE (12:34)
[2025-01-02] MEDS: MARCAINE 0.25% INJ ONE (12:34)
[2025-01-02] MEDS: TOBRAMYCIN SULFATE ONE (12:34)
[2025-01-02] MEDS: VANCOMYCIN HCL ONE (12:34)
[2025-01-02] MEDS: BETADINE SOLN ONE (12:34)
[2025-01-02] MEDS ORDERED: XYLOCAINE 2 % (PLAIN) PRN (12:37)
[2025-01-02] MEDS: KETAMINE HCL IV PRN (12:39)
[2025-01-02] MEDS: PRECEDEX INJ VIAL IVP PRN (12:39)
[2025-01-02] MEDS: DIPRIVAN VIAL 300 ML IVP PRN (12:39)
[2025-01-02] MEDS: ANCEF VIAL 1 GRAM IV PRN (12:45)
[2025-01-02] MEDS: OFIRMEV IV 1000 MG VIAL 1,000 MG/100 ML VIAL IV ONE (12:45)
--- NOTE | 2025-01-02 12:47 | DR.CONSULT ---
CONSULT Consultation for Day of: Date: 01/02/25 Chief Complaint Chief Complaint: Infection of the right foot Allergies Allergies Allergy/AdvReac Type Severity Reaction Status Date / Time No Known Allergies Allergy Verified 01/01/25 18:24 History of Present Illness History of Present Illness: Patient is a 59 y/o male who presented to the ED for surgical intervention of the right foot after being seen in the office yesterdau by his podiatric surgeon, Dr. Velásquez. His foot was noted to be swollen and purulence was appreciated on compression at his surgical /site. Patient had undergone a hallux amputation back on 12/19/24. Imaging was taken in the office and gas bubbles were appreciated on the imaging. In house at CT was performed and concern for soft tissue emphysema is evident. Toe disarticulation of digits 2-4 of the right foot was also discussed with the patient. Patient was noted to have leukocytosis and tacchycardia on arrival to the ED yesterday. Patient will undergo procedure today. Past Medical History Past Medical History: Diabetes Past Surgical History Surgical History: Ortho Surgery Family History Family Medical History: Diabetes Mellitus Social History Does patient currently use any type of tobacco product: No Have you used tobacco products in the last 12 months: No Type of Tobacco Use: None Does any household member use tobacco: No Alcohol Use: None Drug Use: Marijuana Medications Home Medications: No Known Allergies Allergy (Verified 01/01/25 18:24) Physical Exam Vital Signs: Vital Signs Temperature 97.7 F Temperature 98.1 F Temperature 98.0 F Pulse Rate [Left Radial] 88 Pulse Rate [Left Radial] 86 Pulse Rate 88 Respiratory Rate 18 Respiratory Rate 20 Respiratory Rate 17 Blood Pressure [Right Arm] 148/84 Blood Pressure [Right Arm] 148/82 Blood Pressure 160/98 O2 Sat by Pulse Oximetry 98 O2 Sat by Pulse Oximetry 98 O2 Sat by Pulse Oximetry 100 Dermatological: Significant infection of the right foot. Erythema, swelling and purulent drainage is appreciated to the right foot at the hallux amputation site. Patient underwent vascular intervention previous admission and obtained three vessel runoff, will observe for blood flow in todays procedure. Vascular: palpable pulses appreciated b/l to digits 2-4 of right foot, and 1-5 of left foot Neuro: protective sensation diminished b/l Plan (1) Infection following a procedure, deep incisional surgical site, initial encounter: Status: Acute Narrative Support Text: Discussed CT results with patient and concern for gas/soft tissue emphysema in the foot. Patient understands that his toes of his right foot will need to be amputated due to the nature and significance of the infection. Todays procedure is a staged procedure, and will return to OR for either a repeat washout or closure later this week pending his clinical progression Further recs to follow surgical intervention (2) Postoperative pain: Status: Acute (3) Contracture of ankle: Status: Acute (4) Osteomyelitis of ankle or foot, right, acute: Status: Acute (5) Type 2 diabetes mellitus without complications: Status: Acute
--- NOTE | 2025-01-02 12:47 | NOTE.SOAP ---
Soap Note Note for Day of Date of Exam: 01/03/25 Subjective Data Subjective Data: Patient is POD #1 and is resting comfortably. States he does not want to watch the dressing change and has been receiving his pain medication. He has been receiving both oral and IV pain medication. At times his pain is an 8 out of 10. Assessment Assessment: POD #1: Open surgical site note to the right foot, where dis articulation of the toes 2-4 and an incision and drainage occurred. Antibiotic beads are intact and noted to have some drainage within the surgical site. No purulence or matt odor is appreciated at this time. Tenderness is appreciated, but no pus is encountered on compression of the foot. The surgical flap overlying the beads is warm to touch at this time with no ischemic changes. the lateral border is mildly macerated from drainage but stable at this time. Plan Plan: Patient will return to the OR tomorrow 01/04/25 for a repeat washout, remodeling of surgical site with EVANS, closure and removal of antibiotic beads of the right foot. Spoke to Dr. Cook who performed his three vessel runoff prior and states that he believes that if the TMA does not survive, patient may be a candidate for BKA. We will attempt to salvage the foot at this time, however patient is aware of the high risk state of his foot given the infection. Further recommendations to follow surgical intervention tomorrow Please keep patient NPO at midnight
[2025-01-02] MEDS: FENTANYL VIAL INJ 100 mcg IVP PRN (13:00)
[2025-01-02] MEDS: OFIRMEV IV 1000 MG VIAL 1,000 MG/100 ML VIAL IV PRN (13:03)
[2025-01-02] MEDS: MORPHINE SULFATE INJ 2 MG INJ IVP PRN (14:28)
[2025-01-02] MEDS: NovoLIN R (or HumuLIN R) SUBCUT PRN (16:46)
[2025-01-02] MEDS: SNACK - Diabetic Appropriate PO SCH (20:17)
[2025-01-02] MEDS: GLUCOPHAGE XR 24-HR PO SCH (20:59)
[2025-01-03 05:54] LABS: MEAN PLATELET VOLUME 6.9 fL (7.4-11.0); RED CELL DISTRIBUTION WIDTH 13.2 % (11.6-16.5)
[2025-01-03 06:09] LABS: COR CA(FOR HYPOALB) 9.6 mg/dL (8.5-10.1); COR NA(FOR HYPERGLY) 142 mmol/L (136-145); CREATININE 1.11 mg/dL (0.70-1.30); eGFR NON BLACK RACES > 60 (>60)
[2025-01-03] MEDS ORDERED: ZESTRIL TAB 20 MG ONE (08:13)
--- NOTE | 2025-01-03 09:36 | DR.CONSULT ---
CONSULT Consultation for Day of: Date: 01/02/25 Chief Complaint Chief Complaint: Gas gangrene of the right distal foot and subsequent necrosis of the other toes of the right foot. Recently patient had arterial intervention with angioplasty of all 3 distal trifurcation vessels of the right foot and subsequent right great toe amputation for a gangrenous right great toe. Patient has never seen me in follow-up in the office and presented again with these changes. Patient has been seen by podiatry and they have removed the rest of the toes of the foot. I have been asked to see him in consultation. Allergies Allergies Allergy/AdvReac Type Severity Reaction Status Date / Time No Known Allergies Allergy Verified 01/01/25 18:24 History of Present Illness History of Present Illness: See above. Past Medical History Past Medical History: Diabetes Past Surgical History Surgical History: Ortho Surgery Family History Family Medical History: Diabetes Mellitus Social History Does patient currently use any type of tobacco product: No Have you used tobacco products in the last 12 months: No Type of Tobacco Use: None Does any household member use tobacco: No Alcohol Use: None Drug Use: Marijuana Medications Home Medications: No Known Allergies Allergy (Verified 01/01/25 18:24) Amlodipine Aspirin Lisinopril Metformin Pioglitazone Xarelto Review of Systems Constitutional: See HPI Eyes: No Symptoms Reported ENT: No Symptoms Reported Respiratory: No Symptoms Reported Cardiovascular: No Symptoms Reported Gastrointestinal: No Symptoms Reported Genitourinary: No Symptoms Reported Musculoskeletal: No Symptoms Reported Skin: No Symptoms Reported Neurological: No Symptoms Reported Physical Exam Vital Signs: Vital Signs Temperature 97.4 F Temperature 97.7 F Pulse Rate [Left Radial] 85 Pulse Rate [Left Radial] 79 Respiratory Rate 20 Respiratory Rate 20 Respiratory Rate 18 Respiratory Rate 18 Blood Pressure [Right Arm] 157/81 Blood Pressure [Right Arm] 144/84 O2 Sat by Pulse Oximetry 100 O2 Sat by Pulse Oximetry 98 Oriented: Normal, Time, Person and Place Eyes: Normal Ear: Normal Nose: Normal Throat: Normal Respiratory: Clear Throughout Cardiovascular: Normal and Other (Gangrenous changes of remaining toes of the right foot with evidence of gas in the dorsum of the foot reported by podiatry) : Normal Auscultation: Bowel Sounds: Normal Palpation: Normal Tenderness: Normal Skin: Wound (Wound as above right foot) Musculoskeletal: Normal Psychiatric: Normal Mood Description: Calm Affect: Normal Speech Pattern: Clear and Appropriate Plan (1) Infection following a procedure, deep incisional surgical site, initial encounter: Status: Acute (2) Postoperative pain: Status: Acute (3) Contracture of ankle: Status: Acute (4) Osteomyelitis of ankle or foot, right, acute: Status: Acute (5) Type 2 diabetes mellitus without complications: Status: Acute (6) Atherosclerosis of [place] arteries of extremities with rest pain, right leg: Status: Acute Narrative Support Text: Will repeat lower extremity Dopplers but I doubt there is anything further I can do in regards to this patient. Hopefully what we have done will help him maintain his foot at the transmetatarsal and prevent below-knee amputation.
--- NOTE | 2025-01-03 12:54 | VAS ---
EXAMINATION: ANKLE BRACHIAL INDEX HISTORY: GANGRENE in right foot; . COMPARISON: None TECHNIQUE: Segmental pressures obtained of upper and lower extremities. HUMBERTO calculated FINDINGS: Right Brachial 167mm Hg Right PT 93 Right DP 165 Right HUMBERTO 0.99 Left Brachial 160 Left PT 243 Left DP 213 Left HUMBERTO 1.46 IMPRESSION: Borderline HUMBERTO on the right. Incompressible along the left THIS IS AN ELECTRONICALLY VERIFIED FINAL REPORT 01/03/2025 12:51 PM - Electronically signed by Fracisco Garza MD
--- NOTE | 2025-01-03 13:31 | VAS ---
EXAM: LOWER EXT ARTERIAL HISTORY: gangrenous right foot after arterial intervention; . COMPARISON: Ankle/brachial index performed on same date. TECHNIQUE: Ultrasound of bilateral lower extremity arteries was performed, including the common femoral, superficial femoral and popliteal arteries. When clinically applicable, the deep femoral, posterior tibial and/or anterior tibial artery were also evaluated. Color flow and spectral doppler imaging was utilized. Subjective analysis from navas-scale, waveform analysis and color flow imaging was used to estimate degree of stenosis. FINDINGS: RIGHT LOWER EXTREMITY: Proximal common femoral artery has a peak systolic velocity 136 cm/sec with a triphasic wave form. Proximal superficial femoral artery peak systolic velocity 82 cm/sec with a triphasic wave form. Mid superficial femoral artery peak systolic velocity 119 cm/sec with a triphasic wave form. Distal superficial femoral artery peak systolic velocity 110 cm/sec with a triphasic wave form. Proximal popliteal artery peak systolic velocity 105 cm/sec with a biphasic wave form. Distal popliteal artery peak systolic velocity 109 cm/sec with a biphasic wave form. Proximal posterior tibial artery peak systolic velocity 34 cm/sec with a monophasic wave form. Mid posterior tibial artery peak systolic velocity 24 cm/sec with a monophasic wave form. Distal posterior tibial artery peak systolic velocity 30 cm/sec with a monophasic wave form. DPA peak systolic velocity 64 cm/sec with monophasic wave form. LEFT LOWER EXTREMITY: Proximal common femoral artery has a peak systolic velocity 139 cm/sec with a biphasic wave form. Proximal superficial femoral artery peak systolic velocity 75 cm/sec with a biphasic wave form. Mid superficial femoral artery peak systolic velocity 99 cm/sec with a biphasic wave form. Distal superficial femoral artery peak systolic velocity 91 cm/sec with a triphasic wave form. Proximal popliteal artery peak systolic velocity 77 cm/sec with a biphasic wave form. Distal popliteal artery peak systolic velocity 114 cm/sec with a biphasic wave form. Proximal posterior tibial artery peak systolic velocity 89 cm/sec with a monophasic wave form. Mid posterior tibial artery peak systolic velocity 80 cm/sec with a triphasic wave form. Distal posterior tibial artery peak systolic velocity 138 cm/sec with a triphasic wave form. DPA peak systolic velocity 51 cm/sec with monophasic wave form. IMPRESSION: No evidence of hemodynamically significant stenosis. THIS IS AN ELECTRONICALLY VERIFIED FINAL REPORT 01/03/2025 1:18 PM - Electronically signed by Thien aGo MD
[2025-01-03] MEDS: HIBICLENS WASH EXT ONE (20:19)
[2025-01-03] MEDS: PHARMACY COMMENT IV ONE (21:00)
[2025-01-03] MEDS: MORPHINE SULFATE INJ 4 MG IVP PRN (22:00)
[2025-01-04 06:04] LABS: MEAN PLATELET VOLUME 7.0 fL (7.4-11.0); RED CELL DISTRIBUTION WIDTH 13.3 % (11.6-16.5)
[2025-01-04 06:25] LABS: COR CA(FOR HYPOALB) 9.7 mg/dL (8.5-10.1); COR NA(FOR HYPERGLY) 140 mmol/L (136-145); CREATININE 0.85 mg/dL (0.70-1.30); eGFR NON BLACK RACES > 60 (>60)
[2025-01-04] MEDS: ZESTRIL TAB 20 MG ONE (08:01)
--- NOTE | 2025-01-04 09:55 | NOTE.SOAP ---
Soap Note Note for Day of Date of Exam: 01/03/25 Subjective Data Subjective Data: Patient status post arterial intervention of the right leg with angioplasty of all trifurcation vessels. Patient with progression of gangrenous changes of the toes and the forefoot. Objective Data Temperature: 98.0 F Pulse Rate: 78 Respiratory Rate: 20 Blood Pressure: 142/80 O2 Sat by Pulse Oximetry: 99 Objective Data: LE dopplers and ABIs nearly normal both legs Assessment Assessment: gangrenous changes right forefoot . Plan Plan: No other arterial intervention planned of right leg. Will hopfully only end up with transmetatarsal amputation . Arterial intervention may have spared him form below knee amputation , but only time will tell.
[2025-01-04] MEDS: FENTANYL VIAL INJ 100 mcg ONE (11:28)
[2025-01-04] MEDS: VERSED ONE (11:28)
[2025-01-04] MEDS: DIPRIVAN VIAL 20 ML ONE (11:29)
[2025-01-04] MEDS: PEPCID 20 MG VIAL ONE (11:32)
[2025-01-04] MEDS: MARCAINE 0.25% INJ ONE (11:32)
[2025-01-04] MEDS: ZOFRAN INJ 4 MG VIAL ONE (11:41)
[2025-01-04] MEDS: REGLAN INJ 10 MG VIAL ONE (11:41)
[2025-01-04] MEDS: NS 1,000 ML IV 1,000 ML ONE (13:45)
[2025-01-04] MEDS: NS 1,000 ML IV 800 ML IV PRN (13:50)
[2025-01-04] MEDS: ZOFRAN INJ 4 MG VIAL IVP PRN (13:56)
[2025-01-04] MEDS: PEPCID 20 MG VIAL IVP PRN (13:58)
[2025-01-04] MEDS: REGLAN INJ 10 MG VIAL IVP PRN (14:00)
[2025-01-04] MEDS: VERSED IVP PRN (14:31)
[2025-01-04] MEDS: DANTRIUM IVP PRN (14:43)
[2025-01-04] MEDS: BETADINE SOLN ONE (14:50)
[2025-01-04] MEDS: KETAMINE HCL IV PRN (14:55)
[2025-01-04] MEDS: XYLOCAINE 2 % (PLAIN) INJ PRN (14:55)
[2025-01-04] MEDS: PRECEDEX INJ VIAL IVP PRN (14:55)
[2025-01-04] MEDS: PROPOFOL IVP PRN (14:55)
[2025-01-04] MEDS: FENTANYL VIAL INJ 100 mcg IVP PRN (14:57)
[2025-01-04] MEDS: MARCAINE 0.5% ONE (14:59)
[2025-01-04] MEDS: EPHEDRINE SULFATE INJ ONE (15:05)
[2025-01-04] MEDS: TOBRAMYCIN SULFATE ONE (15:07)
[2025-01-04] MEDS: VANCOMYCIN HCL ONE (15:07)
[2025-01-04] MEDS: OFIRMEV IV 1000 MG VIAL 1,000 MG/100 ML VIAL IV PRN (15:15)
[2025-01-04] MEDS: EPHEDRINE SULFATE INJ IVP PRN (15:23)
[2025-01-05] MEDS: OFIRMEV IV 1000 MG VIAL 1,000 MG/100 ML VIAL IV PRN (03:44)
[2025-01-05 07:50] LABS: MEAN PLATELET VOLUME 6.9 fL (7.4-11.0); RED CELL DISTRIBUTION WIDTH 13.6 % (11.6-16.5)
--- NOTE | 2025-01-05 07:54 | NOTE.SOAP ---
Soap Note Note for Day of Date of Exam: 01/05/25 Subjective Data Subjective Data: Patient is POD # 1 after return to the OR for acute osteomyelitis and gas gangrene. Intra-operatively the decision was made to keep surgical site open and debride/repeat washout the surgical site. Patient states his pain is only when he elevates his foot but denies pain when he lets his foot hang off the side of the bed. He denies chest pain or shortness of breath at this time. Objective Data Objective Data: Retention sutures in place with no active drainage and no malodor appreciated. No increased erythema and no pain on compression today. No pus is appreciated and flaps are noted to be warm to the touch at this time. Assessment Assessment: Surgical site is stable and antibiotic block is not visible at this time. This will remain in place for 48 hours due to the efficacy of the antibiotic. Plan Plan: Return to OR on Tuesday01/07/25 at 7:30AM for delayed primary closure pending clinical progression Patient is to be NPO at midnight on Tuesday Further recommendations will follow surgical intervention
[2025-01-05 08:20] LABS: COR CA(FOR HYPOALB) 9.7 mg/dL (8.5-10.1); COR NA(FOR HYPERGLY) 140 mmol/L (136-145); CREATININE 1.10 mg/dL (0.70-1.30); eGFR NON BLACK RACES > 60 (>60)
[2025-01-05] MEDS ORDERED: ZESTRIL TAB 20 MG ONE (08:38)
[2025-01-05] MEDS: NORCO 10/325 TAB PO PRN (14:05)
[2025-01-06 06:55] LABS: MEAN PLATELET VOLUME 7.0 fL (7.4-11.0); RED CELL DISTRIBUTION WIDTH 13.7 % (11.6-16.5)
[2025-01-06 07:04] LABS: COR CA(FOR HYPOALB) 10.0 mg/dL (8.5-10.1); COR NA(FOR HYPERGLY) 139 mmol/L (136-145); CREATININE 0.95 mg/dL (0.70-1.30); eGFR NON BLACK RACES > 60 (>60)
[2025-01-06] MEDS: ZESTRIL TAB 20 MG ONE (08:05)
[2025-01-06] MEDS: NORCO 10/325 TAB PO PRN (10:48)
[2025-01-06] MEDS ORDERED: CATAPRES TAB 0.1 MG PO ONE (19:58)
[2025-01-07] MEDS: HIBICLENS WASH EXT ONE (04:39)
[2025-01-07 05:54] LABS: MEAN PLATELET VOLUME 6.7 fL (7.4-11.0); RED CELL DISTRIBUTION WIDTH 13.7 % (11.6-16.5)
[2025-01-07 06:11] LABS: COR CA(FOR HYPOALB) 10.1 mg/dL (8.5-10.1); COR NA(FOR HYPERGLY) 138 mmol/L (136-145); CREATININE 0.88 mg/dL (0.70-1.30); eGFR NON BLACK RACES > 60 (>60)
[2025-01-07] MEDS: AMIDATE INJ 40 MG VIAL ONE (06:52)
[2025-01-07] MEDS: FENTANYL VIAL INJ 100 mcg ONE (06:53)
[2025-01-07] MEDS: ZOFRAN INJ 4 MG VIAL ONE (06:53)
[2025-01-07] MEDS: PRECEDEX INJ VIAL ONE (06:53)
[2025-01-07] MEDS: REGLAN INJ 10 MG VIAL ONE (06:53)
[2025-01-07] MEDS: VERSED ONE (06:53)
[2025-01-07] MEDS: XYLOCAINE 2 % (PLAIN) ONE (06:55)
[2025-01-07] MEDS: PEPCID 20 MG VIAL ONE (07:17)
[2025-01-07] MEDS: NS 1,000 ML IV 500 ML IV PRN (07:20)
[2025-01-07] MEDS: PEPCID 20 MG VIAL IVP PRN (07:24)
[2025-01-07] MEDS: REGLAN INJ 10 MG VIAL IVP PRN (07:24)
[2025-01-07] MEDS: ZOFRAN INJ 4 MG VIAL IVP PRN (07:25)
[2025-01-07] MEDS: VERSED IVP PRN (07:25)
[2025-01-07] MEDS: NS 1,000 ML IV 1,000 ML ONE (07:31)
[2025-01-07] MEDS: BETADINE SOLN ONE (07:31)
[2025-01-07] MEDS: MARCAINE 0.25% INJ ONE (07:31)
[2025-01-07] MEDS ORDERED: DANTRIUM IVP PRN (07:32)
[2025-01-07] MEDS: FENTANYL VIAL INJ 100 mcg IVP PRN (07:37)
[2025-01-07] MEDS: PRECEDEX INJ VIAL IVP PRN (07:38)
[2025-01-07] MEDS: KETAMINE HCL IV PRN (07:38)
[2025-01-07] MEDS ORDERED: XYLOCAINE 2 % (PLAIN) PRN (07:38)
[2025-01-07] MEDS: DIPRIVAN VIAL 200 ML IVP PRN (07:38)
--- NOTE | 2025-01-07 08:19 | OR.IMMED ---
IMMEDIATE POST-OP NOTE Immediate Post-Op Note Date of surgery/procedure: 01/07/25 Pre-Op Diagnosis: Open surgical site, right foot Osteomyelitis, right foot Gas gangrene, right foot Equinus, right leg Post-Op Diagnosis: Open surgical site, right foot Osteomyelitis, right foot Gas gangrene, right foot Equinus, right leg Procedure: Delayed Primary closure, right foot EVANS, right leg Description of Procedure: see dictation Surgeon/Hopper Feeder: Radha Findings: see dictation Specimens Removed: None Estimated Blood Loss: 10 cc Drains: NONE Complications: None Progress Notes: see dictation Discharge Progress Notes: patient is returing to the inpatient floors Post Hospital Plans and Medications: Patient can be discharged home from Podiatry standpoint Patient to be NWB to the right leg as underwent EVANS to the right leg Scripts for pain medication, crutches, and DVT prohpylaxis have been placed in the patients chart Patient to keep dressing clean, dry and intact and to follow up outpatient with Dr. Garcia next Tuesday01/14/25
--- NOTE | 2025-01-07 08:38 | DR.OPNOTE ---
OP NOTE Pre-Op Diagnosis: Open surgical site, Osteomyelitis, Gas gangrene, Equinus, righ foot Post-Op Diagnosis: Open surgical site, Osteomyelitis, Gas gangrene, Equinus, righ foot Procedure Date Date Of Procedure: 01/07/25 Procedure: Delayed primary closure, right foot EVANS, right foot Type of Anesthesia: Local Findings: Hemostasis No tourniquet used Anesthesia IV Sedation Injectables 20 cc of 0.25% marcaine plain Materials used 3-0 Nylon Description: The patient presented to the pre-operative holding area having been NPO since midnight. History and physical and all preoperative studies were reviewed and there were no contraindications to the proposed procedure. The patient confirmed the procedure to be performed. The risks and benefits of the procedure were again discussed with the patient prior to the procedure and the patient verbalized understanding. While in preoperative holding, the appropriate IV was instituted. The right foot was then marked with indelible ink. The patient was taken to the operating room and patient was transferred to the operating table in a supine position. The appropriate anesthetics were administered and supplemented with 20 cc of 0.25% Marcaine plain in a toya block fashion to the right foot and EVANS site of the right leg. The foot was then prepped and draped in the usual aseptic manner. The right lower extremity was then lowered t o the OR table and sterile draping completed. A time-out was performed to verify the correct patient, procedure and extremity and the following procedure was done. Delayed Primary Closure, right foot Attention was directed to the open transmetatarsal amputation site of the right foot where a few sutures from the previous intervention were noted. Utilizing a #15 blade, one suture from the lateral border of the site was removed and the antibiotic cement was accessible. This antibiotic cement was removed and the surgical site was examined. The tissue appeared healthy today and no purulence w as encountered. Prontosan was once again utilized to irrigate the site. The skin edges were then reapproximated utilizing 3-0 nylon. Tendo-Achilles Lengthening, right leg Attention was directed to the posterior aspect of the right leg at the distal aspect of the Achilles tendon. Three separate stab incisions were performed approximately 1 cm apart, with the most distal one being about 2 cm from the insertion of the Achilles tendon in a medial, lateral, medial position. Each incision performed was a series of three partial transverse tenotomies to achieve controlled lengthening of the Achilles tendon. Each tenotomy was performed with a #15 blade, and was carried through the tendon fibers only, with care taken to avoid full thickness transection. Gentle dorsiflexion was performed at the ankle and confirmed elongation of the fibers as to be expected. Next, the foot and EVANS site was dressed with xeroforom, 4 x 4 gauze, abd pads, webril and a well-padded posterior splint. The patient tolerated the procedure and anesthesia well and was taken from the OR and returned to patients room on the inpatient floors with vital signs stable and vascular status intact to the right lower extremity. Patient can be discharged home from a podiatric standpoint. Prescriptions for pain medication, antibiotics, DVT prophylaxis and crutches were left in the patients chart. The patient is to follow up with Dr. Garcia for postoperative management on TuesdayJanuary 14. Specimen/Pathology: None Type of Fluids Used:: Normal Saline EBL: 10 cc Hardware: None Cultures: None Complications:: None Disposition/Condition: Pt. tolerated procedure without difficulty. Extubated in the OR and taken to PACU in stable condition.
[2025-01-07] MEDS: ZESTRIL TAB 20 MG ONE (10:02)
[2025-01-07] MEDS: ZESTRIL TAB 20 MG PO ONE (10:02)
[2025-01-07 14:15] VITALS: BP 140/74; PULSE 90; TEMP 97.6; O2SAT 99
[2025-01-07 15:54] VITALS: RESP 19
[2025-01-08] MEDS ORDERED: ACTOS PO SCH (09:00)
[2025-01-08] MEDS ORDERED: ZESTRIL TAB 20 MG PO SCH (09:00)
== END 2025-01-07 17:50 | disposition home or self-care (01) | DRG 857 ==
LOC: MED/SURG 18:10 → ER 18:10 → OBSVTOIN 20:53 → MED/SURG 21:56
PROVIDERS: ADMIT Obstetrics & Gynecology Obstetrics; ATTEND Obstetrics & Gynecology Obstetrics
DX: L76.82 Other postprocedural complications of skin and subcutaneous tissue; Z16.11 Resistance to penicillins; Z16.19 Resistance to other specified beta lactam antibiotics; B96.4 Proteus (mirabilis) (morganii) as the cause of diseases classified elsewhere; E87.6 Hypokalemia; E11.65 Type 2 diabetes mellitus with hyperglycemia; Z16.29 Resistance to other single specified antibiotic; T81.42XA Infection following a procedure, deep incisional surgical site, initial encounter; G89.18 Other acute postprocedural pain; I70.221 Atherosclerosis of native arteries of extremities with rest pain, right leg; M86.171 Other acute osteomyelitis, right ankle and foot; M24.575 Contracture, left foot; R26.89 Other abnormalities of gait and mobility; I96 Gangrene, not elsewhere classified; L02.611 Cutaneous abscess of right foot